=== PATIENT | male | born 1965 ===

== ENCOUNTER 2016-12-13 18:42 | Emergency (ER) | payer SELFPAY ==
[~2016-12-13] VITALS: Ht 170.2 cm; Wt 74.7 kg
[2016-12-13 18:46] VITALS: TEMP 37; Ht 170.2 cm; Wt 74.7 kg
[2016-12-13] MEDS ORDERED: ASPIRIN 81 MG CHEW PO STA (19:40)
[2016-12-13] MEDS ORDERED: NITROGLYCERIN 0.4 MG SL PER TAB CHARGE SL PRN (19:45)
--- NOTE | 2016-12-13 19:48 | EMERGENCY ROOM VISIT NOTE ---
History Report prepared by Toy: Nancy Adkins Under the Supervision of: Dr. Neela Ng M.D. First contact with patient: 19:35 Chief Complaint: CHEST PAIN Stated Complaint: CHEST PAIN,DIZZINESS,NUMBNESS,NAUSEA Nursing Triage Summary: Pt presents with left sided chest pain waxing/waning since Fri night. SOB. Nausea. Lightheaded. Numbness in fingers in left hand. 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 The patient currently rates the pain as a 2/10 in severity.The patient states that last week his children were ill with the flu, so when he began having left sided chest pain 3 day ago he thought he was begging to get the flu. He states that he also started to have lightheadedness, nausea, and abdominal pain. He states that when he is lying down his symptoms are improved. The patient states that over the last 3 days he has not had any nasal congestion, sneezing, vomiting, or fevers. The patient states that if he stand or exerts himself his symptoms are worsened. The patient states that it feels like his "left lung is aching" and that someone "stabbed a needle" into his left lung. He states that shifting his body into different positions make his pain worse. The patient denies any history hypertension or taking any blood pressure medications. 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 A total of 10 systems reviewed and were otherwise negative. Past Medical & Surgical denies PMH Family History Cancer Social History Smoking Status: Never Smoker Alcohol Use: none Drug Use: none Marital Status: Housing Status: lives with significant other Current/Historical Medications Scheduled Hydroxyzine Hcl (Atarax), 100 MG PO HS Allergies Coded Allergies: Penicillins (Unverified Allergy, Unknown, UNKNOWN, 12/13/16) Physical Exam Vital Signs Date Time Temp Pulse Resp B/P Pulse Ox O2 Delivery O2 Flow Rate FiO2 12/13/16 22:09 68 20 122/86 95 Room Air 12/13/16 20:30 69 20 119/79 96 Room Air 12/13/16 19:54 68 12/13/16 19:47 74 20 152/97 96 Room Air 12/13/16 18:46 37.0 74 18 155/103 97 Room Air Physical Exam Vital signs reviewed. General: Well-appearing male, in no significant distress. HEENT: No scleral icterus, PERRLA, neck supple. Atraumatic. Cardiovascular: Regular rate and rhythm, no extra sounds. Pulmonary: Clear to auscultation bilaterally, normal work of breathing. Abdomen: Soft, nontender, nondistended, positive bowel sounds. Musculoskeletal: Atraumatic, no peripheral edema. Neurologic: Patient awake alert and oriented x 3, full strength in all 4 extremities. Cranial nerves 2 through 12 grossly intact. Skin: Warm, dry, no rash Medical Decision & Procedures ER Provider Diagnostic Interpretation: X-ray results as stated below per interpretation by me and the radiologist: CHEST ONE VIEW PORTABLE HISTORY: Atypical chest pain. Short of breath. COMPARISON: None. FINDINGS: The lungs are clear. Cardiac silhouette is normal in size. No pleural effusions. No pneumothorax. IMPRESSION: No acute process. Electronically signed by: Sandip Garza M.D. 12/13/2016 7:54 PM Dictated Date/Time: 12/13/2016 7:53 PM Laboratory Results 12/13/16 19:45 Red Blood Count 5.08, Mean Corpuscular Volume 90.2, Mean Corpuscular Hemoglobin 31.5, Mean Corpuscular Hemoglobin Concent 34.9, Mean Platelet Volume 10.5, Neutrophils (%) (Auto) 62.6, Lymphocytes (%) (Auto) 19.5, Monocytes (%) (Auto) 15.7, Eosinophils (%) (Auto) 1.7, Basophils (%) (Auto) 0.0, Neutrophils # (Auto ) 3.58, Lymphocytes # (Auto) 1.12, Monocytes # (Auto) 0.90, Eosinophils # (Auto ) 0.10, Basophils # (Auto) 0.00 12/13/16 19:45 Test 12/13/16 19:45 12/13/16 19:55 12/13/16 20:00 12/13/16 21:25 White Blood Count 5.73 K/uL (4.8-10.8) Red Blood Count 5.08 M/uL (4.7-6.1) Hemoglobin 16.0 g/dL (14.0-18.0) Hematocrit 45.8 % (42-52) Mean Corpuscular Volume 90.2 fL (80-100) Mean Corpuscular Hemoglobin 31.5 pg (25-34) Mean Corpuscular Hemoglobin Concent 34.9 g/dl (32-36) Platelet Count 227 K/uL (130-400) Mean Platelet Volume 10.5 fL (7.4-10.4) Neutrophils (%) (Auto) 62.6 % Lymphocytes (%) (Auto) 19.5 % Monocytes (%) (Auto) 15.7 % Eosinophils (%) (Auto) 1.7 % Basophils (%) (Auto) 0.0 % Neutrophils # (Auto) 3.58 K/uL (1.4-6.5) Lymphocytes # (Auto) 1.12 K/uL (1.2-3.4) Monocytes # (Auto) 0.90 K/uL (0.11-0.59) Eosinophils # (Auto) 0.10 K/uL (0-0.5) Basophils # (Auto) 0.00 K/uL (0-0.2) RDW Standard Deviation 38.5 fL (36.4-46.3) RDW Coefficient of Variation 11.7 % (11.5-14.5) Immature Granulocyte % (Auto) 0.5 % Immature Granulocyte # (Auto) 0.03 K/uL (0.00-0.02) Anion Gap 7.0 mmol/L (3-11) Est Creatinine Clear Calc Drug Dose 62.9 ml/min Estimated GFR () 73.2 Estimated GFR (Non- 63.2 BUN/Creatinine Ratio 15.6 (10-20) Calcium Level 9.3 mg/dl (8.5-10.1) Magnesium Level 2.5 mg/dl (1.8-2.4) Total Bilirubin 0.3 mg/dl (0.2-1) Direct Bilirubin < 0.1 mg/dl (0-0.2) Aspartate Amino Transf (AST/SGOT) 20 U/L (15-37) Alanine Aminotransferase (ALT/SGPT) 28 U/L (12-78) Alkaline Phosphatase 64 U/L (45-117) Total Creatine Kinase 240 U/L (39-308) Creatine Kinase MB 1.0 ng/ml (0.5-3.6) Creatine Kinase MB Ratio 0.4 (0-3.0) Total Protein 8.1 gm/dl (6.4-8.2) Albumin 4.3 gm/dl (3.4-5.0) Lipase 150 U/L (73-393) Influenza Type A Antigen Neg for Influ A (NEG) Influenza Type B Antigen Neg for Influ B (NEG) Bedside D-Dimer 84 ng/mlFEU (0-450) Bedside Troponin I 0.000 ng/ml (0-0.045) Laboratory results per my review. Medications Administered Medications (Trade) Dose Ordered Sig/Phani Route Start Time Stop Time Status Last Admin Dose Admin Aspirin (Aspirin Chew) 324 mg NOW STAT PO 12/13/16 19:40 12/13/16 19:43 DC 12/13/16 19:54 324 MG Nitroglycerin (Nitrostat Tab) 0.4 mg Q5M PRN SL 12/13/16 19:45 12/13/16 23:24 DC 12/13/16 19:54 0.4 MG ECG Indication: chest pain Rate (beats per minute): 69 Rhythm: normal sinus Findings: left axis deviation, no ectopy ED Course 1937: Past medical records reviewed. The patient was evaluated in room C11B. A complete history and physical examination was performed. 1939: Ordered Aspirin Chew 324 mg PO. 1944: Ordered Nitrostat Tab 0.4 mg SL. 2037: I reevaluated the patient and he was resting comfortably. 2239: Upon reevaluation, the patient appeared to have improvement of his symptoms. I discussed findings with him. He verbalized agreement of the treatment plan. The patient was discharged home. Medical Decision DDx: Acute coronary syndrome, pulmonary embolus, aortic dissection, musculoskeletal pain, pneumonia, pleural effusion, pneumothorax This pt was evaluated and appeared to be in no distress. IV access was obtained and lab work was drawn. EKG reveals no evidence of acute ischemia. Pt was medicated with ASA and NTG. BP was noted to be high, but resolved. Lab work reveals negative cardiac enzymes x 2, d-dimer is normal. Pt has no further pain. CXR is clear. Pt was d/c to care of his to f/u with PCP this week. He may require further cardiac testing. Pt will return to the ED for worsening of symptoms or any medical concerns. Impression Primary Impression: Non-cardiac chest pain Scribe Attestation The scribe's documentation has been prepared under my direction and personally reviewed by me in its entirety. I confirm that the note above accurately reflects all work, treatment, procedures, and medical decision making performed by me. Departure Information Dispostion Home / Self-Care Referrals Fran Mitchell M.D. (PCP) Forms HOME CARE DOCUMENTATION FORM, IMPORTANT VISIT INFORMATION Patient Instructions My [facility] Additional Instructions Diagnosis: Chest pain Tylenol 650 mg every 6 hours as needed for pain. Drink plenty of clear fluids. Follow-up with your physician this week for reevaluation and consideration of further cardiac testing. Return to the emergency department for worsening symptoms or any medical concerns.
[2016-12-13 19:55] LABS: COMPLETE YES; EOS % 1.7 %; HEMATOCRIT 45.8 % (42-52); IG% 0.5 %; LYMPH % 19.5 %; LYMPH ABS # 1.12 K/uL (1.2-3.4); MEAN CELL VOLUME 90.2 fL (80-100); MEAN CORPUSCULAR HEMOGLOBIN 31.5 pg (25-34); MEAN CORPUSCULAR HGB CONC 34.9 g/dl (32-36); MEAN PLATELET VOLUME 10.5 fL (7.4-10.4); MONO % 15.7 %; NEUT % 62.6 %; PLATELET COUNT 227 K/uL (130-400); RED BLOOD COUNT 5.08 M/uL (4.7-6.1); WHITE BLOOD COUNT 5.73 K/uL (4.8-10.8)
--- NOTE | 2016-12-13 19:56 | DIAGNOSTIC IMAGING REPORT ---
CHEST ONE VIEW PORTABLE HISTORY: Atypical chest pain. Short of breath. COMPARISON: None. FINDINGS: The lungs are clear. Cardiac silhouette is normal in size. No pleural effusions. No pneumothorax. IMPRESSION: No acute process. Electronically signed by: Sandip Garza M.D. 12/13/2016 7:54 PM Dictated Date/Time: 12/13/2016 7:53 PM
[2016-12-13 20:13] LABS: ALT/SGPT 28 U/L (12-78); AST/SGOT 20 U/L (15-37); BLOOD UREA NITROGEN 20 mg/dl (7-18); BUN/CREATININE RATIO 15.6 (10-20); CALCIUM 9.3 mg/dl (8.5-10.1); CARBON DIOXIDE 30 mmol/L (21-32); CHLORIDE 103 mmol/L (98-107); GLUCOSE 95 mg/dl (70-99); MAGNESIUM 2.5 mg/dl (1.8-2.4); POTASSIUM 4.3 mmol/L (3.5-5.1); SODIUM 140 mmol/L (136-145)
[2016-12-13 20:16] LABS: ALKALINE PHOSPHATASE 64 U/L (45-117); CKMB/CK RATIO 0.4 (0-3.0)
[2016-12-13] MEDS ORDERED: HYDR-3126 PO (20:35)
[2016-12-13 22:09] VITALS: BP 122/86; PULSE 68; O2SAT 95
== END 2016-12-13 22:40 | disposition home or self-care (01) ==
LOC: C.EDB 18:44 → C.EDC 22:40
DX: R07.89 Other chest pain (principal); R42 Dizziness and giddiness